=== PATIENT | female | born 1990 | race Two or more races ===

== ENCOUNTER 2025-01-06 20:40 | Emergency (ER) | payer MEDICAID, OTHER ==
[~2025-01-06] VITALS: Ht 157.5 cm; Wt 140.8 kg
[2025-01-06] MEDS ORDERED: ONDANSETRON HCL 4 MG/2 ML VIAL IV ONE (21:00)
[2025-01-06] MEDS ORDERED: MORPHINE SULFATE 4 MG/ML SYR/VIAL IV ONE (21:00)
[2025-01-06] MEDS ORDERED: SODIUM CHLORIDE 0.9% 1,000 ML IV ONE (21:00)
[2025-01-06 21:15] VITALS: BP 141/86; PULSE 93; RESP 18; O2SAT 99
== END 2025-01-06 22:00 | disposition left against medical advice (07) ==
LOC: EEVIPCON 20:40 → ER 20:40
DX: I10 Essential (primary) hypertension (principal); R51.9 Headache, unspecified; Z53.21 Procedure and treatment not carried out due to patient leaving prior to being seen by health care provider